=== PATIENT | male | born 1980 | race Caucasian/White ===

== ENCOUNTER → 2022-11-08 15:41 | Outpatient (CLI) | payer OTHER, SELFPAY ==
--- NOTE | ~2022-11-08 | XR_ITS ---
XR toe 1st RT min 2V DATE: 11/08/2022 15:57 INDICATION: Kicked soccer ball in great toe. Bruising, swelling TECHNIQUE: 4 views COMPARISON: None FINDINGS: Subtle linear lucency suggestive of recent nondisplaced fracture is noted in the medial met aphyseal area of the distal phalanx. No other fracture or dislocation is detected. Mild osteoarthritis at the first metatarsophalangeal joint. IMPRESSION: Probable subtle nondisplaced linear fracture of the metaphysis of the distal phalanx Reviewed, dictated and finalized at location A. IMPRESSION: Probable subtle nondisplaced linear fracture of the metaphysis of t he distal phalanx
== END ==
PROVIDERS: PCP Family Medicine; Visit Provider Nurse Practitioner Family
DX: M79.674 Pain in right toe(s) (principal)
CPT/HCPCS: 73660

== ENCOUNTER 2023-05-02 15:35 | Outpatient (CLI) | payer OTHER, SELFPAY ==
--- NOTE | ~2023-05-02 | XR_ITS ---
EXAMINATION: XR tibia fibula RT 2V, XR ankle RT min 3V DATE: 05/02/2023 15:56 INDICATION: Right lower leg injury with right ankle swelling TECHNIQUE: 1. AP and lateral views of the right tibia and fibula were obtained on overlapping proximal and dista l images. 2. AP, mortise, oblique and lateral views of the right ankle were obtained. COMPARISON: None. FINDINGS: Alignment is normal from the right knee through the visualized right midfoot. No fracture. Joint spac es are normal. Mild soft tissue swelling about the mid to distal lower leg and ankle. No right knee o r ankle joint effusion. IMPRESSION: 1. No osseous abnormality at the right lower leg, ankle and visualized foot. Reviewed, dictated and finalized at location L. IMPRESSION: 1. No osseous abnormality at the right lower leg, ankle and visualized foot.
== END 2023-05-02 15:36 ==
PROVIDERS: PCP Family Medicine; Visit Provider Nurse Practitioner Family
DX: S89.91XA Unspecified injury of right lower leg, initial encounter (principal); X58.XXXA Exposure to other specified factors, initial encounter
CPT/HCPCS: 73590; 73610